=== PATIENT | male | born 1950 | race Caucasian/White ===

== ENCOUNTER 2024-01-06 15:50 | Inpatient (IN) ==
--- NOTE | 2024-01-06 16:14 | Emergency Department Note ---
History of Present Illness General Chief complaint: Illness Stated complaint: SOB, CONFUSION, SLURRED SPEECH, HEADACHE Time Seen by Provider: 01/06/24 15:59 Source: patient, family ( and daughter who are at the bedside), RN notes reviewed and old records reviewed (I have reviewed a medication fill list from the outside pharmacy) Mode of arrival: ambulatory Limitations: no limitations History of Present Illness This patient is a 73-year-old male who comes in after having a decline over the last month and a half. He is here with his family. They said that he started waking up at night short of breath and seeing things and hallucinating. He has been seen by his doctor who is in [place] and they have change his medications including put him on Cymbalta and change his blood pressure medication they so far feel that it is related to anxiety although he has had no other testing. He gets very confused when he wakes up in the morning at times his color looks off at times. His speech seems off at times. His bright breathing seems erratic at times is mostly dyspnea on exertion the reason that brought him in today is because he seems a lot more dyspneic on exertion he walks about 20 feet or ties his shoes and he feels short winded. He feels fine sitting in the bed at rest. No lower extremity edema or swelling no fall or trauma no chest pain he has occasional cough with phlegm. No abdominal pain no nausea vomiting is chronic diarrhea off-and-on no blood in his stool his stools black at times but he is on iron. No urinary symptoms. No acute change in vision although says his vision has been off for the last couple weeks or so. He recently got new glasses. No numbness or weakness in arms or legs. He has a headache that is been mild off and on. He takes baby aspirin 3 times a week but no other blood thinners. Home Medications Medication Instructions Recorded Confirmed Type aspirin 81 mg tablet,delayed 81 mg PO [id number] 01/06/24 01/06/24 History release duloxetine 30 mg capsule,delayed 30 mg PO HS 01/06/24 01/06/24 History release ferrous sulfate 325 mg (65 mg 325 mg PO HS 01/06/24 01/06/24 History iron) tablet lorazepam 1 mg tablet See Rx Instructions .Route .COMPLEX 01/06/24 01/06/24 History meloxicam 15 mg tablet 15 mg PO QAM 01/06/24 01/06/24 History metoprolol succinate [address] [facility] 01/06/24 01/06/24 History tablet,extended release 24 hr omeprazole 40 mg capsule,delayed 40 mg PO 01/06/24 01/06/24 History release pioglitazone 15 mg tablet (Actos) 15 mg PO DAILY 01/06/24 01/06/24 History pramipexole 0.5 mg tablet 0.5 mg PO HS 01/06/24 01/06/24 History prazosin 5 mg capsule 5 mg PO 01/06/24 01/06/24 History Allergies Allergy/AdvReac Type Severity Reaction Status Date / Time aspirin Allergy Unknown Unknown - Unverified 01/06/24 18:45 On File w/ [facility] Penicillins Allergy Unknown Unknown - Unverified 01/06/24 18:45 On File w/ [facility] Past Med/Surg History Problem List (Updated 01/07/24 @ 00:10 by James Aguilar MD) CHF (congestive heart failure) (Acute) Hypertension Hypertensive urgency Atrial fibrillation (Acute) Anemia Hallucinations, visual Thrombocytopenia Acute encephalopathy Anxiety (Acute) Diabetes Hallucinations (Acute) OSORIO (dyspnea on exertion) (Acute) Medical History (Updated 01/07/24 @ 00:10 by James Aguilar MD) History of GI bleed Emphysema lung Social History Smoking Status: Former smoker Preferred Language: Thai Communication Ability: Effective It Assistant Required: No Beliefs That Will Affect Care: None Current Living Situation: Spouse Feels Safe at Home: Yes Safety Concerns: Feels Safe At This Time Immunizations: Past medical historyhypertension, diabetes-has been well-controlled, hypercholesteremia, COPD he is on no medications for COPD. Allergiesno known drug allergy Social history he does have a smoking history but quit many years ago. He drinks about 3 times a week but does not have any trouble with withdrawal if he does not drink Review of Systems A total of 10 systems reviewed and were otherwise negative Physical Exam Vital Signs Vital Signs - 24 hr 01/06/24 15:53 01/06/24 17:52 01/06/24 17:54 Pulse Rate 59 L 59 L Pulse Rate from SpO2 Sensor 62 Pulse Rhythm Regular Respiratory Rate 21 21 Blood Pressure 163/104 H Blood Pressure Mean 123 Pulse Oximetry 94 94 Oxygen Delivery Method Room Air Sepsis New/Unexplained Change in Mental Status Yes Sepsis Action Taken by Nursing No Action Required 01/06/24 18:31 01/06/24 19:02 Pulse Rate 56 L 52 L Pulse Rate from SpO2 Sensor 55 L Pulse Rhythm Respiratory Rate 25 H 25 H Blood Pressure 192/83 H 190/100 H Blood Pressure Mean 119 130 Pulse Oximetry 94 Oxygen Delivery Method Sepsis New/Unexplained Change in Mental Status Sepsis Action Taken by Nursing General: Well developed well nourished [id number] older male who appears in no acute distress, breathing comfortably on room air. Normal speech HEENT: Normal cephalic atraumatic. Pupils are equal round and reactive to light. Extraocular movements are intact. Oropharynx is pink with moist mucous membranes. No swelling of the mouth lips or tongue. Neck: Supple with a midline trachea. No meningeal signs or stiffness, no JVD or bruits. No Stridor. Chest: Clear to auscultation bilaterally. No wheezes or rhonchi. No increased work of breathing. Heart: Regular rate and rhythm without murmurs or gallops. Abdomen: Soft nontender, nondistended without rebound guarding or rigidity. Extremities: No cyanosis clubbing or edema. No calf tenderness or assymetry Spine/Back. Non tender to palpation. No CVA tenderness Skin: Good turgor without rashes. Neurologic exam: Cranial nerves two through 12 are intact. Motor and sensation are intact and symmetrical throughout. Finger-nose intact. Normal gait with exception of limp due to chronic left knee issues he tells me. Does not appear to be ataxic Course Administered Medications Duloxetine HCl (Duloxetine Hcl 30 Mg Cap) 30 mg PO HS GALI Stop: 02/05/24 21:59 Last Admin: 01/06/24 23:12 Dose: 30 mg Documented By: MONIKA Ferrous Sulfate (Ferrous Sulfate 325 Mg Tab) 325 mg PO HS GALI Stop: 02/05/24 21:59 Last Admin: 01/06/24 23:12 Dose: 325 mg Documented By: MONIKA Insulin Aspart (Insulin Aspart Per Unit Charge) 0 units SC ACHS GALI Stop: 02/05/24 21:52 Last Admin: 01/06/24 23:07 Dose: Not Given Documented By: MONIKA Co-signed By: MENG Pantoprazole Sodium (Pantoprazole 40 Mg Tab) 40 mg PO HS GALI Stop: 02/05/24 21:59 Last Admin: 01/06/24 23:12 Dose: 40 mg Documented By: MONIKA Pramipexole Dihydrochloride (Pramipexole Dihydrochlo 0.5 Mg Tab) 0.5 mg PO HS GALI Stop: 02/05/24 21:59 Last Admin: 01/06/24 23:12 Dose: 0.5 mg Documented By: MONIKA Prazosin HCl (Prazosin Hcl 1 Mg Cap) 5 mg PO HS GALI Stop: 02/05/24 21:59 Last Admin: 01/06/24 23:12 Dose: 5 mg Documented By: MONIKA Discontinued Medications Lorazepam 1 mg/ Syringe 1 mls @ 2 mls/min IV ONE PRN PRN Reason: 30 mins prior to MRI Last Admin: 01/06/24 20:22 Dose: 2 mls/min Documented By: MONIKA Ioversol (Optiray 320 125ml) 117 ml IV ONCE ONE Stop: 01/06/24 20:20 Last Admin: 01/06/24 20:20 Dose: 117 ml Documented By: TAVARES Medical Decision Making Differential Diagnosis Intracranial process, CHF, COPD, acute coronary syndrome, arrhythmia, anemia, infection, trauma, electrolyte or metabolic abnormality, toxicologic Medical Records Attestation: I reviewed the patient's medical records. Home Medications Current Medication List: was personally reviewed by me Laboratory Data Attestation: I reviewed the patient's lab results. 01/06/24 16:45 01/06/24 16:45 Lab Results 01/06/24 01/06/24 Range/Units 16:45 17:50 WBC 4.29 L (4.8-10.8) K/ul RBC 3.63 L (4.70-6.10) M/uL Hgb 10.8 L (14.0-18.0) g/dl Hct 33.1 L (42.0-52.0) % MCV 91.2 (80.0-100.0) fL MCH 29.8 (25.0-34.0) pg MCHC 32.6 (32.0-36.0) g/dL RDW Std Deviation 49.8 H (36.4-46.3) fL RDW Coeff of Erick 15.3 H (11.5-14.5) % Plt Count 101 L (130-400) K/uL MPV 9.6 (9.4-12.4) fL Immature Gran % (Auto) 0.5 % Neut % (Auto) 73.2 % Lymph % (Auto) 17.0 % [place] % (Auto) 5.6 % Eos % (Auto) 3.5 % Baso % (Auto) 0.2 % Neut # (Auto) 3.14 (1.40-6.50) K/uL Lymph # (Auto) 0.73 L (1.20-3.40) K/uL [place] # (Auto) 0.24 (0.11-0.59) K/uL Eos # (Auto) 0.15 (0.00-0.50) K/uL Baso # (Auto) 0.01 (0.00-0.20) K/uL Immature Gran # (Auto) 0.02 (0.01-0.20) K/uL PT 11.5 (9.0-12.0) Seconds INR 1.1 (0.9-1.1) APTT 23 (21-31) Seconds PTT Ratio 0.9 D-Dimer 870 H* (0-500) ug/L FEU VBG pH 7.37 (7.36-7.41) VBG pCO2 49 (38-50) mmHg VBG pO2 33 mmHg VBG HCO3 28 mmol/L VBG O2 Saturation 60.5 % VBG Base Excess 2.2 mEq/L Sodium 142 (136-145) mmol/L Potassium 4.3 (3.5-5.1) mmol/L Chloride 109 H (98-107) mmol/L Carbon Dioxide 28 (21-32) mmol/L Anion Gap 5 (3-11) BUN 21 (6-23) mg/dl Creatinine 1.25 (0.6-1.4) mg/dl Est Cr Clr Drug Dosing Not Reportable Est GFR ( Amer) 64.9 ml/min Est GFR (Non-Af Amer) 56.0 ml/min BUN/Creatinine Ratio 16.8 (10-20) Glucose 118 H (70-99(Fasting)) mg/dl Calcium 8.9 (8.6-10.3) mg/dl Magnesium 2.0 (1.7-2.4) mg/dl Total Bilirubin 1.0 (0.2-1.0) mg/dl AST 12 L (13-39) U/L ALT 10 (7-52) U/L Alkaline Phosphatase 83 (34-104) U/L Troponin I High Sens 9.2 (0-20) pg/ml C-Reactive Protein < 0.50 (0-0.5) mg/dl B-Natriuretic Peptide 390 H (0-100) pg/ml Total Protein 6.7 (6.0-8.3) gm/dl Albumin 4.1 (3.4-5.0) gm/dl Globulin 2.6 (2.5-4.0) gm/dl Albumin/Globulin Ratio 1.6 (0.9-2) Procalcitonin < 0.02 (0-0.5) ng/ml TSH 4.435 (0.300-4.500) uIu/ml Adenovirus (PCR) Not Detected (NotDetected) B. pertussis DNA (PCR) Not Detected (NotDetected) B.parapertussis DNA PCR Not Detected (NotDetected) C. pneumoniae DNA (PCR) Not Detected (NotDetected) Coronavirus OC43 (PCR) Not Detected (NotDetected) Coronavirus HKU1 (PCR) Not Detected (NotDetected) Coronavirus 229E (PCR) Not Detected (NotDetected) SARS-CoV-2 (PCR) Not Detected (NotDetected) Coronavirus NL63 (PCR) Not Detected (NotDetected) Human Metapneumovir PCR Not Detected (NotDetected) Influenza Type A (PCR) Not Detected (NotDetected) Influenza Type B (PCR) Not Detected (NotDetected) M. pneumoniae (PCR) Not Detected (NotDetected) Parainfluenza 1 (PCR) Not Detected (NotDetected) Parainfluenza 2 (PCR) Not Detected (NotDetected) Parainfluenza 3 (PCR) Not Detected (NotDetected) Parainfluenza 4 (PCR) Not Detected (NotDetected) RSV (PCR) Not Detected (NotDetected) Entero/Rhino (PCR) Not Detected (NotDetected) Imaging Data Attestation: I personally reviewed and interpreted this imaging study as follows: My Impression: Head CTno hemorrhage or mass effect seen Chest x-raycardiomegaly with a small to moderate pleural effusion on the left Radiologist's Impression: Chest X-Ray 01/06/24 16:11 XR chest 1V portable HISTORY: weakness COMPARISON: None. FINDINGS: No pneumothorax. The heart is mildly enlarged. The right lung is clear. Small to moderate left pleural effusion with left basilar densities. No acute fractures. No evidence for pulmonary edema. IMPRESSION: 1. Small to moderate left pleural effusion with left basilar densities. 2. Mild cardiomegaly. ACT 112: Negative or not required by law. Electronically signed by: John Eubanks M.D. 01/06/2024 4:[address] 01/06/24 16:11 CT head/brain wo con CLINICAL HISTORY: 73 years-old Male with wekness, headache. Acute headache TECHNIQUE: Multiple axial CT images of the head were obtained without contrast. A dose lowering technique was utilized adhering to the principles of ALARA. CT DOSE: 625.8 mGy.cm COMPARISON: None. FINDINGS: No acute intracranial hemorrhage, midline shift, intracranial mass, hydrocephalus, territorial ischemia or abnormal extra-axial collection. Involutional changes chronic with microvascular ischemic disease. The calvarium is intact. The paranasal sinuses, mastoid air cells, and middle ear cavities are clear. IMPRESSION: No acute intracranial abnormality. ACT 112: Negative or not required by law. The above report was generated using voice recognition software. It may contain grammatical, syntax or spelling errors. Electronically signed by: González Patel M.D. 01/06/2024 5:08 PM ECG Data Attestation: I personally reviewed and interpreted this ECG as follows: Indication: + weakness Rate (beats per minute): 59 Rhythm: + atrial fibrillation and + other (Poor baseline) ECG Intervals/blocks: + Normal QRS and + Normal QT ECG [place]: + Normal ECG ST segments: + Normal ST segments ECG Findings: no PACs or no PVCs Comparison ECG Date: no prior available MDM Narrative This patient comes in as described above. He looks well on my exam but the family says he had a decline over the last month and a half where he has been getting significantly dyspneic on exertion. he also seems to be confused in the morning. He has no acute focal neurologic deficits on exam. He has normal speech. I did a full workup on him which included: multiple blood testing, EKG,chest x-ray, head CT and urinalysis. He was reassessed frequently. He is placed on a media monitor in room B9. At present , he seems to have normal mentation and does not appear to be hallucinating. I did discuss the case with Luly, our ED pharmacist, and she was able to get the outside medication for list from his home medications. Chest x-ray shows cardiomegaly with pleural effusion on the left. BNP is also elevated. I do think there is likely a CHF component. Was also found to be in A-fib. He said he had this many years ago and was on anticoagulation but due to GI bleed issues they stopped his anticoagulation. Is unclear whether his A-fib is chronic. CAT scan of his head is unremarkable. He has no significant electrolyte or metabolic abnormalities. I do think he needs to be admitted/observed for further cardiac/neurologic workup workup. I have consulted Dr. Adarsh Shetty to see the patient ER for these measures Continuous cardiac monitoring call orders placed in the EMR for continuous media monitor upon my evaluation patient noted to be in atrial fibrillation with a rate of 70 Impression & Plan OSORIO (dyspnea on exertion), Hallucinations, Atrial fibrillation, Anxiety, CHF (congestive heart failure) Discharge Plan Visit Data Chief Complaint: Illness Stated Complaint: SOB, CONFUSION, SLURRED SPEECH, HEADACHE ED Provider: James Aguilar Discharge Problem: OSORIO (dyspnea on exertion), Hallucinations, Atrial fibrillation, Anxiety, CHF (congestive heart failure) Patient Disposition: Admitted As Inpatient Discharge Instructions Interventions: ED Discharge Assessment Last Done: 01/06/24 21:53 Discharge Problem: Atrial fibrillation Qualifiers: Atrial fibrillation type: unspecified Qualified Code(s): I48.91 - Unspecified atrial fibrillation CHF (congestive heart failure) Qualifiers: Heart failure type: unspecified Heart failure chronicity: unspecified Qualified Code(s): I50.9 - Heart failure, unspecified
--- NOTE | 2024-01-06 16:38 | XRay Report ---
XR chest 1V portable HISTORY: weakness COMPARISON: None. FINDINGS: No pneumothorax. The heart is mildly enlarged. The right lung is clear. Small to moderate l eft pleural effusion with left basilar densities. No acute fractures. No evidence for pulmonary edema . IMPRESSION: 1. Small to moderate left pleural effusion with left basilar densities. 2. Mild cardiomegaly. ACT 112: Negative or not required by law. Electronically signed by: John Eubanks M.D. 01/06/2024 4:36 PM
[2024-01-06 17:02] LABS: Base Excess VBG 2.2 mEq/L; HCO3 VBG 28 mmol/L; Oxygen Saturation VBG 60.5 %; PCO2 VBG 49 mmHg (38-50); PO2 VBG 33 mmHg; pH VBG 7.37 (7.36-7.41)
--- NOTE | 2024-01-06 17:11 | CT Scan Report ---
CT head/brain wo con CLINICAL HISTORY: 73 years-old Male with wekness, headache. Acute headache TECHNIQUE: Multiple axial CT images of the head were obtained without contrast. A dose lowering tech nique was utilized adhering to the principles of ALARA. CT DOSE: 625.8 mGy.cm COMPARISON: None. FINDINGS: No acute intracranial hemorrhage, midline shift, intracranial mass, hydrocephalus, territorial ischem ia or abnormal extra-axial collection. Involutional changes chronic with microvascular ischemic disea se. The calvarium is intact. The paranasal sinuses, mastoid air cells, and middle ear cavities are clear . IMPRESSION: No acute intracranial abnormality. ACT 112: Negative or not required by law. The above report was generated using voice recognition software. It may contain grammatical, syntax o r spelling errors. Electronically signed by: González Patel M.D. 01/06/2024 5:08 PM
[2024-01-06 17:12] LABS: Basophils # (auto) 0.01 K/uL (0.00-0.20); Basophils % (auto) 0.2 %; Eosinophils # (auto) 0.15 K/uL (0.00-0.50); Eosinophils % (auto) 3.5 %; Hematocrit (blood only) 33.1 % (42.0-52.0); Hemoglobin 10.8 g/dl (14.0-18.0); Immature Granulocytes # (auto) 0.02 K/uL (0.01-0.20); Immature Granulocytes % (auto) 0.5 %; Lymphocytes # (auto) 0.73 K/uL (1.20-3.40); Mean Corpuscular Hemoglobin 29.8 pg (25.0-34.0); Mean Corpuscular Hgb Conc 32.6 g/dL (32.0-36.0); Mean Corpuscular Volume 91.2 fL (80.0-100.0); Mean Platelet Volume 9.6 fL (9.4-12.4); Monocytes # (auto) 0.24 K/uL (0.11-0.59); Monocytes % (auto) 5.6 %; Neutrophils # (auto) 3.14 K/uL (1.40-6.50); Neutrophils % (auto) 73.2 %; Platelet Count 101 K/uL (130-400); RDW Coefficient of Variation 15.3 % (11.5-14.5); RDW Standard Deviation 49.8 fL (36.4-46.3); Red Blood Count 3.63 M/uL (4.70-6.10); White Blood Count 4.29 K/ul (4.8-10.8)
[2024-01-06 17:32] LABS: Alanine Aminotransferase 10 U/L (7-52); Albumin Globulin Ratio 1.6 (0.9-2); Albumin Level 4.1 gm/dl (3.4-5.0); Alkaline Phosphatase 83 U/L (34-104); Anion Gap 5 (3-11); Aspartate Aminotransferase 12 U/L (13-39); BUN Creatinine Ratio 16.8 (10-20); Blood Urea Nitrogen 21 mg/dl (6-23); Calcium 8.9 mg/dl (8.6-10.3); Carbon Dioxide 28 mmol/L (21-32); Chloride 109 mmol/L (98-107); Est GFR (African American) 64.9 ml/min; Globulin 2.6 gm/dl (2.5-4.0); Glucose 118 mg/dl (70-99(Fasting)); Potassium 4.3 mmol/L (3.5-5.1); Sodium 142 mmol/L (136-145); Total Protein 6.7 gm/dl (6.0-8.3)
[2024-01-06 17:39] LABS: Troponin I High Sensitivity 9.2 pg/ml (0-20)
[2024-01-06 17:40] LABS: INR 1.1 (0.9-1.1); Partial Thromboplastin Ratio 0.9; Partial Thromboplastin Time 23 Seconds (21-31); Prothrombin Time 11.5 Seconds (9.0-12.0)
[2024-01-06 17:48] LABS: Thyroid Stimulating Hormone 4.435 uIu/ml (0.300-4.500)
--- NOTE | 2024-01-06 18:10 | History & Physical Report ---
Date of Service January 06, 2024 Assessment & Plan (1) Acute encephalopathy: Plan: Suspect multifactorial CT head with no acute pathology Ammonia level added UA pending Brain MRI to assess for CVA given expressive dysphasia noted by family Mainly overnight therefore will get overnight pulse oximetry and morning ABG to assess for hypoxia/hypercapnia Iatrogenic - multiple recent medication changes but most notably started on lorazepam which we will utilize for the brain MRI then discontinue (2) OSORIO (dyspnea on exertion): Plan: Low suspicion a. fib related but possible led to some heart failure (pleural effusion) contributing Suspect somewhat anxiety component as historically this has been the case (previously resolved with Eliquis No WBC or fever to suggest consolidation in left lower lobe infectious and biofire negative, will add procalcitonin to rule out need for antibiotics D-dimer added, if positive will get CT for PE Consult pulmonology regarding left pleural effusion to consider thoracentesis for diagnostic and therapeutic purposes (3) Atrial fibrillation: Plan: Possibly previously diagnosed with episode of GI bleed in 2018 Hold off anticoagulation pending brain MRI to ensure no large acute CVA - will start IV heparin depending on result of this Rate controlled on metoprolol - in fact appears to be somewhat bradycardic therefore will reduce from 100mg to 50mg PO daily TSH WNL TTE ordered (4) Hypertensive urgency: Plan: Deferred acutely treating pending MRI brain to ensure no acute CVA No end organ damage to suggest hypertensive emergency (5) Emphysema lung: Plan: On no inhalers for this. No wheezing on exam to suggest exacerbation. Recommend PFTs as outpatient if not recently performed. (6) Diabetes: Plan: HbA1C with AM labs Stop pioglitazone, consider discontinuation if heart failure suspected to be cause of pleural effusion Novolog for correction factor only (7) Anxiety: Plan: Continue Cymbalta Stop Lorazepam (except for MRI) (8) Thrombocytopenia: Plan: Mild, unclear baseline, LFTs and INR unremarkable, repeat with AM labs Hold aspirin - no clear indication for this from history given by patient and family (9) Hallucinations, visual: Plan: Previously appears to be related to Paxil, currently most likely culprit is lorazepam Prazosin also a possibility of contributing towards this (10) Anemia: Plan: Recently gave blood, to prior Hgb levels to compare Ferritin, iron levels, B12, folate, retic, LDH with Am labs (11) History of GI bleed: Plan: 2018 Switch omeprazole to pantoprazole per hospital formulary (12) Hypertension: (13) Pleural effusion, left: Plan VTE Prophylaxis - IV heparin Diet - T2DM, Low Na Disposition - admit to med/tele Admission and Anticipated Discharge Date Admission Date: January 06, 2024 History of Present Illness Chief Complaint: Shortness of breath Hypnopompic hallucinations Expressive dysphasia Primary Care Provider: Sky Pantoja MD Mario Simon is a 73 year old male who presents to the ER with shortness of breath, hypnopompic hallucinations and expressive dysphasia. Here with his and daughter who provide most of the history. In general he does not like getting investigations and therefore despite most of his symptoms ongoing for last 6 weeks and seeing his PCP he has not had any labs or imaging. The shortne ss of breath has been getting progressively worse over the last 6 weeks but especially worse over the last few days and is their main concern prompting this visit to the ER. It is mainly on exertion and lying flat but now also occurring at rest. He denies any chest pain, palpitations, paroxysmal nocturnal dyspnea, leg swelling, claudication, presyncope or syncope. He took an old albuterol inhaler yesterday for his shortness of breath with limited effect. Expressive dysphasia - daughter notes episode of this last Wednesday with difficulty getting the right words out and has reoccurred today. Atrial fibrillation - noted on monitor and EKG today. They report possibly being told he had this during a GI bleed a few years ago in [place] but it was not treated and they haven't had any information regarding this since. He is not on anticoagulation Visual hallucinations - previously these were during the day time but suspected to be due to Paxil therefore switched to Cymbalta and he no longer has this during the day time. Currently hallucinations occur just while waking up in the middle of the night he feels he is hanging from the ceiling in the corridor and is going to fall. Confusion - mainly first this in the morning. Much more asleep during the day time. He has had multiple recent medication changes with Paxil -> Cymbalta in November due to daytime visual hallucinations which have improved on the Cymbalta. He was also started on prazosin for night terrors and therefore discontinued amlodipine due to concerns it would reduce his blood pressure. Lorazepam started PRN in October which he reports taking relatively frequently at a half dose for the last week. He has not been on HCTZ for the last year despite continuing to pick this up from the pharmacy they maintain he is not on this or the amlodipine. Pioglitazone started in June for his diabetes. Of note he also recently gave blood 2 weeks ago despite his ongoing shortness of breath. Allergies Allergy/AdvReac Type Severity Reaction Status Date / Time aspirin Allergy Unknown Unknown - Unverified 01/06/24 18:45 On File w/ [facility] Penicillins Allergy Unknown Unknown - Unverified 01/06/24 18:45 On File w/ [facility] Home Medications Medication Instructions Recorded Confirmed Type aspirin 81 mg tablet,delayed 81 mg PO 3XWK 01/06/24 01/06/24 History release duloxetine 30 mg capsule,delayed 30 mg PO HS 01/06/24 01/06/24 History release ferrous sulfate 325 mg (65 mg 325 mg PO HS 01/06/24 01/06/24 History iron) tablet lorazepam 1 mg tablet See Rx Instructions .Route .COMPLEX 01/06/24 01/06/24 History meloxicam 15 mg tablet 15 mg PO QAM 01/06/24 01/06/24 History metoprolol succinate 100 mg 100 mg PO QAM 01/06/24 01/06/24 History tablet,extended release 24 hr omeprazole 40 mg capsule,delayed 40 mg PO HS 01/06/24 01/06/24 History release pioglitazone 15 mg tablet (Actos) 15 mg PO DAILY 01/06/24 01/06/24 History pramipexole 0.5 mg tablet 0.5 mg PO HS 01/06/24 01/06/24 History prazosin 5 mg capsule 5 mg PO HS 01/06/24 01/06/24 History Past Med/Surg History Problem List (Updated 01/07/24 @ 07:13 by Adarsh Shetty MD) Pleural effusion, left CHF (congestive heart failure) (Acute) Hypertension Hypertensive urgency Atrial fibrillation (Acute) Anemia Hallucinations, visual Thrombocytopenia Acute encephalopathy Anxiety (Acute) Diabetes Hallucinations (Acute) OSORIO (dyspnea on exertion) (Acute) Medical History (Updated 01/07/24 @ 07:13 by Adarsh Shetty MD) History of GI bleed Emphysema lung Social History Smoking Status: Former smoker Preferred Language: Vietnamese Communication Ability: Effective Ad Trafficker Required: No Beliefs That Will Affect Care: None Current Living Situation: Spouse Feels Safe at Home: Yes Safety Concerns: Feels Safe At This Time Review of Systems Review of Systems: All systems reviewed & are unremarkable except as noted in HPI & below Episodes of urgent diarrhea - several months, last colonoscopy in 2018. EGD showed bleeding, blood transfusion at [place]. Phlegm in throat - 1-2 years but worse over last month, coughing up saenz colored, cough mostly in morning when gets up after coffee Physical Exam Constitutional: WD/WN, vitals as above Eyes: PERRL, conjunctivae normal, anicteric sclerae Respiratory: normal respiratory effort, lungs clear to auscultation Cardiovascular: Rate/Rhythm: regular rate and + irregularly irregular Heart Sounds: no murmur Extremities: normal capillary refill and + pedal edema; no calf tenderness Gastrointestinal (Abdomen): normal bowel sounds, soft, nontender, no hepatosplenomegaly Musculoskeletal: no cyanosis or clubbing, extremities motor strength 5/5 Skin: no rashes, warm and dry Neurologic: moves all extremities and awake; not confused Speech / Cognition: normal speech Motor/Sensory: no tremor and no pronator drift Cranial Nerves: PERRL, normal accommodation, EOM intact bilaterally, normal facial strength, tongue midline, able to rotate head bilaterally, able to elevate shoulders bilaterally, no nystagmus and symmetric palate elevation Coordination: normal [id number] test Psychiatric: A+Ox3, euthymic affect Results & Data Results & Data Vital Signs (Past 12 Hours) Vital Signs Pulse Resp BP Pulse Ox O2 Del Method 01/06/24 17:54 59 L 21 94 Room Air 01/06/24 17:52 59 L 21 163/104 H 94 Laboratory Results Abnormal lab results 01/06/24 Range/Units 16:45 WBC 4.29 L (4.8-10.8) K/ul RBC 3.63 L (4.70-6.10) M/uL Hgb 10.8 L (14.0-18.0) g/dl Hct 33.1 L (42.0-52.0) % RDW Std Deviation 49.8 H (36.4-46.3) fL RDW Coeff of Erick 15.3 H (11.5-14.5) % Plt Count 101 L (130-400) K/uL Lymph # (Auto) 0.73 L (1.20-3.40) K/uL Chloride 109 H (98-107) mmol/L Glucose 118 H (70-99(Fasting)) mg/dl AST 12 L (13-39) U/L B-Natriuretic Peptide 390 H (0-100) pg/ml Diagnostic Findings CT head/brain wo con CLINICAL HISTORY: 73 years-old Male with wekness, headache. Acute headache TECHNIQUE: Multiple axial CT images of the head were obtained without contrast. A dose lowering technique was utilized adhering to the principles of ALARA. CT DOSE: 625.8 mGy.cm COMPARISON: None. FINDINGS: No acute intracranial hemorrhage, midline shift, intracranial mass, hydrocephalus, territorial ischemia or abnormal extra-axial collection. Involutional changes chronic with microvascular ischemic disease. The calvarium is intact. The paranasal sinuses, mastoid air cells, and middle ear cavities are clear. IMPRESSION: No acute intracranial abnormality. XR chest 1V portable HISTORY: weakness COMPARISON: None. FINDINGS: No pneumothorax. The heart is mildly enlarged. The right lung is clear. Small to moderate left pleural effusion with left basilar densities. No acute fractures. No evidence for pulmonary edema. IMPRESSION: 1. Small to moderate left pleural effusion with left basilar densities. 2. Mild cardiomegaly. Medications Administered ER Medications Give: None ECG Rate (beats per minute): 59 Rhythm: atrial fibrillation Findings: no acute ischemic change Comparison ECG Date: no prior available Code Status & VTE Plan Code Status Full PG Care Time/CCT Total # of Minutes Spent Total Time Spent with Patient: Total time spent is greater than 50% in coordination of care (as documented) at patient's floor/unit and/or counseling patient: Coding Level of Care Code 25958 INT INP/OBS CARE 3/75MIN Diagnoses Acute encephalopathy G93.40 OSORIO (dyspnea on exertion) R06.09 Atrial fibrillation I48.91 Hypertensive urgency I16.0 Emphysema lung J43.9 Diabetes E11.9 Anxiety F41.9 Thrombocytopenia D69.6 Hallucinations, visual R44.1 Anemia D64.9 History of GI bleed Z87.19 Hypertension I10 Pleural effusion, left J90
[2024-01-06 18:51] LABS: Adenovirus PCR Not Detected (NotDetected); Bordetella parapertussis PCR Not Detected (NotDetected); Bordetella pertussis PCR Not Detected (NotDetected); Chlamydia pneumoniae PCR Not Detected (NotDetected); Coronavirus 229E PCR Not Detected (NotDetected); Coronavirus CoV-2 (COVID19)PCR Not Detected (NotDetected); Coronavirus HKU1 PCR Not Detected (NotDetected); Coronavirus NL63 PCR Not Detected (NotDetected); Coronavirus OC43PCR Not Detected (NotDetected); Human Metapneumovirus PCR Not Detected (NotDetected); Influenza A PCR Not Detected (NotDetected); Influenza B PCR Not Detected (NotDetected); Mycoplasma pneumoniae PCR Not Detected (NotDetected); Parainfluenza Virus 1 PCR Not Detected (NotDetected); Parainfluenza Virus 2 PCR Not Detected (NotDetected); Parainfluenza Virus 3 PCR Not Detected (NotDetected); Parainfluenza Virus 4 PCR Not Detected (NotDetected); Respiratory Syncytial VirusPCR Not Detected (NotDetected); Rhinovirus/Enterovirus PCR Not Detected (NotDetected)
[2024-01-06 19:33] LABS: D Dimer 870 ug/L FEU (0-500)
[2024-01-06 19:59] LABS: Appearance Urine Clear (Clear); Bacteria Urine Automated None Seen (None Seen); Bilirubin Urine Negative (Negative); Blood Urine Negative (Negative); Cast Urine Automated 0-2 /lpf (0-2); Color Urine Yellow; Epithelial Cell Urine Auto 0-2 /hpf (0-2); Glucose Urine UA Negative (Negative); Ketones Urine Negative (Negative); Leukocyte Esterase Urine 1+ (Negative); Nitrite Urine Negative (Negative); Protein Urine Trace (Negative); RBC Urine Automated 0-2 /hpf (0-2); Specific Gravity Urine 1.022 (1.000-1.030); Urobilinogen Urine Negative (Negative); pH Urine 5.5 (4.5-7.5)
[2024-01-06] MEDS: OPTIRAY 320 125ml IV ONE (20:20)
[2024-01-06] MEDS: LORazepam 1 MG in SYRINGE 0.5 ML IV PRN (20:22)
[2024-01-06] MEDS ORDERED: GLUCOSE 40% GEL 15 GM TUBE PO PRN (21:53)
[2024-01-06] MEDS ORDERED: GLUCOSE 10 TAB/TUBE PO PRN (21:53)
[2024-01-06] MEDS ORDERED: ACETAMINOPHEN 325 MG TAB PO PRN (21:53)
[2024-01-06] MEDS ORDERED: DEXTROSE 50% 50 ML SYRINGE IV PRN (21:53)
[2024-01-06] MEDS ORDERED: GLUCAGON FOR INJ 1 MG VIAL SQ PRN (21:53)
[2024-01-06] MEDS ORDERED: CARBOHYDRATES FOR HYPOGLYCEMIA PO PRN (21:53)
--- NOTE | 2024-01-06 22:06 | CT Scan Report ---
Exam(s): CTA CHEST IV Amt: 117 ML OPTIRAY 320 EXAM: CT Angiography Chest With Intravenous Contrast CLINICAL HISTORY: Reason for exam: PE. TECHNIQUE: Axial computed tomographic angiography images of the chest with intravenous contrast. CTDI is 40 mGy and DLP is 980.84 mGy-cm. Automated exposure control was utilized for the study. A dose lowering technique was utilized adhering to the principles of ALARA. MIP reconstructed images were created and reviewed. COMPARISON: No relevant prior studies available. FINDINGS: Pulmonary arteries: Unremarkable. No acute pulmonary embolism. Aorta: No acute findings. No thoracic aortic aneurysm. Lungs: See below. Pleural space: Small bilateral pleural effusions, LEFT great than RIGHT. Airspace consolidation at the LEFT lung base, concerning for aspiration pneumonia. Heart: Unremarkable. No cardiomegaly. No significant pericardial effusion. No evidence of RV dysfunction. Bones/joints: No acute fracture. No dislocation. Soft tissues: Unremarkable. Lymph nodes: Unremarkable. No enlarged lymph nodes. Liver: Hepatic steatosis. IMPRESSION: Small bilateral pleural effusions, LEFT great than RIGHT. Airspace consolidation at the LEFT lung base, concerning for aspiration pneumonia. Electronically signed by: Burak Humphries MD 01/06/24 22:05 PM
[2024-01-06 22:49] LABS: C Reactive Protein < 0.50 mg/dl (0-0.5)
[2024-01-06] MEDS: INSULIN ASPART PER UNIT CHARGE SC SCH (23:07)
[2024-01-06] MEDS: DULoxetine HCL 30 MG CAP PO SCH (23:12)
[2024-01-06] MEDS: PRAMIPEXOLE DIHYDROCHLO 0.5 MG TAB PO SCH (23:12)
[2024-01-06] MEDS: PANTOprazole 40 MG TAB PO SCH (23:12)
[2024-01-06] MEDS: PRAZOSIN HCL 1 MG CAP PO SCH (23:12)
[2024-01-06] MEDS: FERROUS SULFATE 325 MG TAB PO SCH (23:12)
[2024-01-07] MEDS ORDERED: Heparin IV Adult Wt-Based Standard *NO* INITIAL Bolus Protocol IV STA (00:55)
--- NOTE | 2024-01-07 01:52 | Magnetic Resonance Report ---
Exam(s): MRI HEAD Without Contrast EXAM: MR Head Without Intravenous Contrast CLINICAL HISTORY: Reason for exam: expressive dysphasia ?CVA. TECHNIQUE: Magnetic resonance images of the head/brain without intravenous contrast in multiple planes. COMPARISON: No relevant prior studies available. FINDINGS: Brain: Unremarkable. No mass. No hemorrhage. No acute infarct. Ventricles: Unremarkable. No ventriculomegaly. Bones/joints: Unremarkable. No acute fracture. Sinuses: Unremarkable as visualized. No acute sinusitis. Mastoid air cells: Unremarkable as visualized. No mastoid effusion. Orbits: Unremarkable as visualized. IMPRESSION: Normal head/brain MRI. Electronically signed by: Jean Evans MD 01/07/24 01:51 AM
[2024-01-07] MEDS: HEPARIN SODIUM/DEXTROSE 25,000 UNITS/500 ML BAG IV SCH (02:20)
[2024-01-07 06:43] LABS: Base Excess ABG 0.8 mEq/L (-9-1.8); HCO3 ABG 27 mmol/L (19-24); Oxygen Saturation ABG 95.2 % (90-95); PCO2 ABG 46 mmHg (35-46); PO2 ABG 77 mmHg (80-95); pH ABG 7.37 (7.35-7.45)
[2024-01-07 06:45] LABS: Allen Test Pos (Pos)
[2024-01-07 07:10] LABS: Estimated Average Glucose 108 mg/dl; Hemoglobin A1C 5.4 % (4.5-5.6)
[2024-01-07 07:19] LABS: Albumin Globulin Ratio 1.5 (0.9-2); Albumin Level 3.8 gm/dl (3.4-5.0); BUN Creatinine Ratio 19.2 (10-20); Calcium 8.5 mg/dl (8.6-10.3); Creatinine Clr Calc Pharmacy 78.5 ml/min; Est GFR (Non-African American) 69.9 ml/min; Globulin 2.5 gm/dl (2.5-4.0); Phosphorus 4.5 mg/dl (2.5-4.9); Potassium 3.7 mmol/L (3.5-5.1); Total Protein 6.3 gm/dl (6.0-8.3)
[2024-01-07 07:25] LABS: Hematocrit (blood only) 31.1 % (42.0-52.0); Hemoglobin 10.2 g/dl (14.0-18.0); Mean Corpuscular Hgb Conc 32.8 g/dL (32.0-36.0); Mean Corpuscular Volume 91.5 fL (80.0-100.0); Mean Platelet Volume 9.6 fL (9.4-12.4); Platelet Count 93 K/uL (130-400); RDW Coefficient of Variation 15.6 % (11.5-14.5); RDW Standard Deviation 50.4 fL (36.4-46.3); White Blood Count 3.73 K/ul (4.8-10.8)
[2024-01-07 07:27] LABS: Basophils # (auto) 0.02 K/uL (0.00-0.20); Basophils % (auto) 0.5 %; Eosinophils # (auto) 0.11 K/uL (0.00-0.50); Eosinophils % (auto) 2.9 %; Immature Granulocytes # (auto) 0.02 K/uL (0.01-0.20); Immature Granulocytes % (auto) 0.5 %; Lymphocytes # (auto) 0.67 K/uL (1.20-3.40); Monocytes # (auto) 0.23 K/uL (0.11-0.59); Monocytes % (auto) 6.2 %; Neutrophils # (auto) 2.68 K/uL (1.40-6.50); Neutrophils % (auto) 71.9 %; Platelet Estimate Decreased (Normal); Reticulocyte % 4.57 % (0.50-2.00)
[2024-01-07 07:35] LABS: Folate (Folic Acid),Ser orPlas 9.61 ng/ml (>5.38)
[2024-01-07 07:38] LABS: Ferritin 52.4 ng/ml (8-388)
[2024-01-07] MEDS: METOPROLOL SUCC 50MG EXT REL TAB PO SCH (08:28)
[2024-01-07 08:48] LABS: ANTI-Xa, UFH(UnfractionatedHep 0.35 IU/ml (0.3-0.7)
--- NOTE | 2024-01-07 10:23 | Electrocardiogram Report ---
Test Reason : Blood Pressure : / mmHG Vent. Rate : 059 BPM Atrial Rate : 065 BPM P-R Int : 000 ms QRS Dur : 096 ms QT Int : 456 ms P-R-T Axes : 025 011 044 degrees QTc Int : 451 ms Atrial fibrillation No previous ECGs available Confirmed by Mario James ([id number]) on 01/07/2024 10:23:11 AM Referred By: REFERRED SELF Confirmed By:Hamlet James
--- NOTE | 2024-01-07 13:06 | Pulmonary Consultation ---
Date of Consultation January 07, 2024 Assessment & Plan (1) Pulmonary edema cardiac cause: He has mosaic attenuation in bilateral effusions consistent with acute diastolic CHF. Will give a one-time dose of 40 mg of IV Lasix and defer further diuresis to the primary team. (2) Bilateral pleural effusion: Left greater than right effusion. Left effusion is small and will unlikely change his outcome if thoracentesis were pursued. Recommend conservative strategy of diuresis for the time being. (3) Cardiac murmur: Patient with several valvular defects noted on echo with aortic stenosis, mitral calcifications and mitral regurgitation noted. (4) Diastolic CHF, acute on chronic: As above, patient clearly in acute on chronic diastolic CHF exacerbation due to poorly controlled blood pressure, poor diet and atrial fibrillation. (5) Hypertension: Suggest better control of BP with goal systolic under 130 and goal diastolic under 80 mm torrey. Hypertension type: unspecified Qualified Code(s): I10 - Essential (primary) hypertension (6) Poor diet: Discussed the low-salt diet with the patient and checking daily weights. (7) Secondary pulmonary arterial hypertension: Patient with elevated RVSP of greater than 60 mmHg likely secondary to acute diastolic CHF. Recommend repeating an echo in 2 to 3 months as an outpatient once he is euvolemic. Recommend outpatient polysomnography to evaluate for for obstructive sleep apnea as this could also lead to pulmonary hypertension. Chest CTA last night without evidence of pulmonary embolism. Plan Thank you for the consult. Please call questions. History of Present Illness Reason for Consultation: Pleural effusion Attending Physician: Mario Baum MD History of Present Illness 73-year-old male with a history of hypertension and diabetes mellitus type 2 who presented to the ER due to severe shortness of breath with exertion. Family is able to provide collateral history as the patient is hard of hearing and has some memory deficits. Apparently the patient has been short of breath for the past month and a half with some lower extremity edema. His diet habits are quite poor and he often eats chips and other salty foods. Family notes that his blood pressure medication was recently changed due to night terrors. He was taken off of Norvasc and placed on prazosin and subsequently has had increasing blood pressures. Apparently yesterday he was confused and MRI of the brain was ordered which was negative. BNP revealed an elevated value and echocardiogram was completed today which revealed diastolic dysfunction, mild valvular aortic stenosis, mild mitral annular calcification, mild mitral regurgitation and an RVSP greater than 60 mmHg. Patient denies any shortness of breath currently at rest. He is on 2 L of oxygen saturating 99%. He denies any chest pain. He does endorse a history of social smoking and quit about 30 years ago. He smoked perhaps half a pack a day for about 20 years. 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 He denies any prior history of cardiac stenting or pulmonary disease that he is aware of. Chest CTA completed in the ER last night revealed small bilateral effusions, left greater than right and diffuse mosaic attenuation consistent with pulmonary edema per my review. Radiology also noted findings concerning for possible aspiration pneumonia. Patient's procalcitonin was negative. He is afebrile. He is without leukocytosis Allergies Allergy/AdvReac Type Severity Reaction Status Date / Time aspirin Allergy Unknown Unknown - Unverified 01/06/24 18:45 On File w/ [facility] Penicillins Allergy Unknown Unknown - Unverified 01/06/24 18:45 On File w/ [facility] Home Medications Medication Instructions Recorded Confirmed Type aspirin 81 mg tablet,delayed 81 mg PO 3XWK 01/06/24 01/06/24 History release duloxetine 30 mg capsule,delayed 30 mg PO HS 01/06/24 01/06/24 History release ferrous sulfate 325 mg (65 mg 325 mg PO HS 01/06/24 01/06/24 History iron) tablet lorazepam 1 mg tablet See Rx Instructions .Route .COMPLEX 01/06/24 01/06/24 History meloxicam 15 mg tablet 15 mg PO QAM 01/06/24 01/06/24 History metoprolol succinate 100 mg 100 mg PO QAM 01/06/24 01/06/24 History tablet,extended release 24 hr omeprazole 40 mg capsule,delayed 40 mg PO HS 01/06/24 01/06/24 History release pioglitazone 15 mg tablet (Actos) 15 mg PO DAILY 01/06/24 01/06/24 History pramipexole 0.5 mg tablet 0.5 mg PO HS 01/06/24 01/06/24 History prazosin 5 mg capsule 5 mg PO HS 01/06/24 01/06/24 History Patient History Medical History (Updated 01/07/24 @ 13:04 by Cameron Grayson MD) History of GI bleed Emphysema lung Social History Smoking Status: Former smoker Preferred Language: Nigerian Communication Ability: Effective Nursing Home Director Required: No Beliefs That Will Affect Care: None Current Living Situation: Spouse Feels Safe at Home: Yes Safety Concerns: Feels Safe At This Time Assistive Devices: None Review of Systems Review of Systems: All systems reviewed & are unremarkable except as noted in HPI & below Physical Exam Physical Exam: Constitutional: Patient appears to be of their stated age. Patient is in no apparent distress. Patient is well-developed. Eyes: Pupils are equal round and reactive to light. Conjunctivae are normal. Anicteric sclera. Ears nose, mouth and throat: Mallampati class 2. Normal posterior oropharynx. Uvula is midline. Neck: Trachea is midline. Visual inspection is normal. Respiratory: Mild crackles in the lower lobes bilaterally. Mild tachypnea. Cardiovascular: Regular rate and rhythm. 3 out of 6 systolic flow murmur. 1+ edema in extremities bilaterally, right greater than left. Gastrointestinal: Normal bowel sounds, soft, nontender and nondistended. No hepatosplenomegaly noted. Musculoskeletal: No cyanosis. Patient is able to move all extremities. Strength is 5 out of 5 in the upper and lower extremities. Skin: No rashes, warm dry and intact. Neurologic: No obvious focal neurological deficits seen. Psychiatric: Alert and oriented x3 with a euthymic affect. Results & Data Results & Data Vital Signs (Past 12 Hours) Vital Signs Temp Pulse Pulse Pulse Resp BP Pulse Ox 01/07/24 12:12 72 16 98 01/07/24 10:19 76 18 164/91 H 97 01/07/24 08:29 48 L 01/07/24 08:19 63 01/07/24 07:52 01/07/24 07:51 36.5 C 63 18 150/89 H 95 01/07/24 06:00 58 L 16 198/120 H 94 01/07/24 02:50 50 L 01/07/24 01:19 72 18 145/78 H 94 Pulse Ox O2 Del Method O2 Del Method O2 Flow Rate O2 Flow Rate 01/07/24 12:12 Nasal Cannula 2 01/07/24 10:19 Nasal Cannula 2 01/07/24 08:29 01/07/24 08:19 01/07/24 07:52 Nasal Cannula 2 01/07/24 07:51 Nasal Cannula 2 01/07/24 06:00 Nasal Cannula 2 01/07/24 02:50 94 Nasal Cannula 2 01/07/24 01:19 Nasal Cannula 2 PG Care Time/CCT Total # of Minutes Spent Total Time Spent with Patient: Total time spent is greater than 50% in coordination of care (as documented) at patient's floor/unit and/or counseling patient: Coding Level of Care Code 00953 INT INP/OBS CARE 375MIN Diagnoses Pulmonary edema cardiac cause I50.1 Bilateral pleural effusion J90 Cardiac murmur R01.1 Diastolic CHF, acute on chronic I50.33 Hypertension, unspecified type I10 Hypertension type: unspecified Poor diet E63.9 Secondary pulmonary arterial hypertension I27.21
[2024-01-07] MEDS: FUROSEMIDE 40 MG/4 ML VIAL IV ONE (13:33)
[2024-01-07] MEDS: METOPROLOL SUCC 50MG EXT REL TAB PO STA (16:10)
[2024-01-07 16:13] LABS: ANTI-Xa, UFH(UnfractionatedHep 0.43 IU/ml (0.3-0.7)
--- NOTE | 2024-01-07 16:44 | Hospitalist Progress Note ---
Date of Service January 07, 2024 Assessment & Plan (1) Acute encephalopathy: Plan: Suspect multifactorial but improving CT head with no acute pathology Ammonia level WNL UA non-revealing Brain MRI normal Mainly overnight therefore will get overnight pulse oximetry and morning ABG to assess for hypoxia/hypercapnia- completed Iatrogenic most likely biggest factor- discontinue lorazepam indefinitely (2) OSORIO (dyspnea on exertion): Plan: Low suspicion a. fib related but possible led to some heart failure (pleural effusion) contributing Likely due to b/l pleural effusions with mild pulmonary edema--> given lasix dose today with good output, may require additional dose in AM No WBC or fever to suggest consolidation in left lower lobe infectious and biofire negative, will add procalcitonin to rule out need for antibiotics CTA negative for PE Consult pulmonology- no pleurocentesis at this time, recommend diuresis (3) CHF (congestive heart failure): Plan: -New diagnosis w/ normal EF on echo -Diurese as needed -Weights as needed -Low sodium education provided -Recommend outpatient cardiology consultation (4) Atrial fibrillation: Plan: Started on heparin for thrombus prophylaxis by admitting team Switch to DOAC tonight and d/c heparin TSH WNL TTE ordered--> normal EF (5) Hypertensive urgency: Plan: Deferred acutely treating pending MRI brain to ensure no acute CVA No end organ damage to suggest hypertensive emergency (6) Emphysema lung: Plan: On no inhalers for this. No wheezing on exam to suggest exacerbation. Recommend PFTs as outpatient if not recently performed. (7) Diabetes: Plan: HbA1C with AM labs--> 5.4 on admission Stop pioglitazone, contraindicated in CHF, a1c so good do not feel strongly about additional glycemic control at this time Novolog for correction factor only (8) Anxiety: Plan: Continue Cymbalta Stop Lorazepam (9) Thrombocytopenia: Plan: Mild, unclear baseline, LFTs and INR unremarkable, repeat with AM labs Hold aspirin - no clear indication for this from history given by patient and family (10) Hallucinations, visual: Plan: Previously appears to be related to Paxil, currently most likely culprit is lorazepam Prazosin also a possibility of contributing towards this (11) Anemia: Plan: Recently gave blood, to prior Hgb levels to compare Ferritin, iron levels, B12, folate, retic, LDH with Am labs (12) History of GI bleed: Plan: 2018 Switch omeprazole to pantoprazole per hospital formulary (13) Hypertension: (14) Pleural effusion, left: Plan VTE Prophylaxis - IV heparin--> DOAC Diet - T2DM, Low Na Disposition - Contiue admission for observation and diuresis CODE STATUS: Full code Admission and Anticipated Discharge Date Admission Date: January 06, 2024 Supervising Physician Co-Signing Physician Notes Attending attestation Pt seen and examined in concert with Dr. Lynn. In agreement with the documented findings as noted in the resident documentation with any exceptions or additions as noted here. Significantly improved cognition from presentation per patient and spouse without current complaint of lightheadedness, chest pain, SOB. On examination, S1/S2 nl RRR no MCG. CTAB. Abd NT/ND BS+ve Acute encephalopathy - multifactorial potential causes - improving with conservative measures Polypharmacy - discontinued lorazepam and avoid beer's class medications where possible Type 2 diabetes with controlled A1c - d/c actos with concern for exacerbation of heart failure vs. hypoglyecmia inciting encephalopathy. Subacute dyspnea on exertion - s/p furosemide, monitor response and O2 reuqirement per protocol Else see resident documentation as noted. Subjective Patient seen at bedside this morning. No acute events reported overnight. Patient seems to be improving in mentation compared to yesterday and seems more awake and alert. Denies any chest pain, headache, or nausea/vomiting. Patient's breathing does feel somewhat improved but is requiring nasal cannula. No other complaints at this time. Review of Systems Review of Systems: All systems reviewed & are unremarkable except as noted in HPI & below Physical Exam Constitutional: well developed, well nourished and + well hydrated Eyes: + anicteric sclerae Neck: trachea midline, no thyromegaly Respiratory: normal respiratory effort Auscultation: + crackles Cardiovascular: Rate/Rhythm: regular rate and + irregularly irregular Heart Sounds: + murmur Extremities: + edema (Trace LE edema b/l) Gastrointestinal (Abdomen): normal bowel sounds, soft, nontender, no hepatosplenomegaly Musculoskeletal: Head/Neck/Chest: normocephalic and head atraumatic Skin: no rashes, warm and dry Neurologic: moves all extremities Psychiatric: A+Ox3, euthymic affect Results & Data Results & Data Vital Signs (Past 12 Hours) Vital Signs Temp Pulse Pulse Resp BP Pulse Ox O2 Del Method 01/07/24 16:05 87 22 183/96 H 96 Nasal Cannula 01/07/24 13:52 74 16 155/92 H 95 Nasal Cannula 01/07/24 12:12 72 16 98 Nasal Cannula 01/07/24 10:19 76 18 164/91 H 97 Nasal Cannula 01/07/24 08:29 48 L 01/07/24 08:19 63 01/07/24 07:52 Nasal Cannula 01/07/24 07:51 36.5 C 63 18 150/89 H 95 Nasal Cannula 01/07/24 06:00 58 L 16 198/120 H 94 Nasal Cannula O2 Flow Rate 01/07/24 16:05 1 01/07/24 13:52 1 01/07/24 12:12 2 01/07/24 10:19 2 01/07/24 08:29 01/07/24 08:19 01/07/24 07:52 2 01/07/24 07:51 2 01/07/24 06:00 2 (3) CHF (congestive heart failure) Heart failure chronicity: unspecified Heart failure type: unspecified Qualified Code(s): I50.9 - Heart failure, unspecified (4) Atrial fibrillation Atrial fibrillation type: unspecified Qualified Code(s): I48.91 - Unspecified atrial fibrillation (13) Hypertension Hypertension type: unspecified Qualified Code(s): I10 - Essential (primary) hypertension
--- NOTE | 2024-01-07 17:40 | XCELERA ---
[id number] \\[id number]
[2024-01-08 07:12] LABS: Hematocrit (blood only) 31.1 % (42.0-52.0); Hemoglobin 9.9 g/dl (14.0-18.0); Mean Corpuscular Hemoglobin 29.5 pg (25.0-34.0); Mean Corpuscular Hgb Conc 31.8 g/dL (32.0-36.0); Mean Corpuscular Volume 92.6 fL (80.0-100.0); Platelet Count 88 K/uL (130-400); RDW Coefficient of Variation 15.6 % (11.5-14.5); RDW Standard Deviation 52.1 fL (36.4-46.3); Red Blood Count 3.36 M/uL (4.70-6.10)
[2024-01-08] MEDS: APIXABAN 5 MG TABLET PO SCH (08:41)
--- NOTE | 2024-01-08 09:11 | Hospitalist Progress Note ---
Date of Service January 08, 2024 Assessment & Plan Admission and Anticipated Discharge Date Admission Date: January 06, 2024 Results & Data Results & Data Vital Signs (Past 12 Hours) Vital Signs Temp Pulse Pulse Pulse Pulse Pulse Pulse 01/08/24 08:58 92 H 87 83 89 01/08/24 07:28 36.4 C L 62 01/08/24 04:22 36.4 C L 62 01/07/24 23:53 36.9 C 77 01/07/24 22:07 93 H Resp Resp Resp Resp Resp BP BP 01/08/24 08:58 18 18 16 16 01/08/24 07:28 16 168/89 H 01/08/24 04:22 20 150/81 H 01/07/24 23:53 20 146/79 H 01/07/24 22:07 Pulse Ox Pulse Ox Pulse Ox Pulse Ox Pulse Ox O2 Del Method O2 Flow Rate 01/08/24 08:58 92 86 L 90 91 01/08/24 07:28 97 Nasal Cannula 2.5 01/08/24 04:22 97 Nasal Cannula 2 01/07/24 23:53 96 Nasal Cannula 2 01/07/24 22:07 O2 Flow Rate 01/08/24 08:58 1 01/08/24 07:28 01/08/24 04:22 01/07/24 23:53 01/07/24 22:07
[2024-01-08] MEDS: LOSARTAN POTASSIUM 50 MG TAB PO SCH (09:57)
[2024-01-08] MEDS: FUROSEMIDE 40 MG/4 ML VIAL IV ONE (09:57)
--- NOTE | 2024-01-08 12:13 | Discharge Summary ---
Date of Service January 08, 2024 Admission HPI Per Admitting Provider Mario Simon is a 73 year old male who presents to the ER with shortness of breath, hypnopompic hallucinations and expressive dysphasia. Here with his and daughter who provide most of the history. In general he does not like getting investigations and therefore despite most of his symptoms ongoing for last 6 weeks and seeing his PCP he has not had any labs or imaging. The shortness of breath has been getting progressively worse over the last 6 weeks but especially worse over the last few days and is their main concern prompting this visit to the ER. It is mainly on exertion and lying flat but now also occu rring at rest. He denies any chest pain, palpitations, paroxysmal nocturnal dyspnea, leg swelling, claudication, presyncope or syncope. He took an old albuterol inhaler yesterday for his shortness of breath with limited effect. Expressive dysphasia - daughter notes episode of this last Wednesday with difficulty getting the right words out and has reoccurred today. Atrial fibrillation - noted on monitor and EKG today. They report possibly being told he had this during a GI bleed a few years ago in [place] but it was not treated and they haven't had any information regarding this since. He is not on anticoagulation Visual hallucinations - previously these were during the day time but suspected to be due to Paxil therefore switched to Cymbalta and he no longer has this during the day time. Currently hallucinations occur just while waking up in the middle of the night he feels he is hanging from the ceiling in the corridor and is going to fall. Confusion - mainly first this in the morning. Much more asleep during the day time. He has had multiple recent medication changes with Paxil -> Cymbalta in November due to daytime visual hallucinations which have improved on the Cymbalta. He was also started on prazosin for night terrors and therefore discontinued amlodipine due to concerns it would reduce his blood pressure. Lorazepam started PRN in October which he reports taking relatively frequently at a half dose for the last week. He has not been on HCTZ for the last year despite continuing to pick this up from the pharmacy they maintain he is not on this or the amlodipine. Pioglita zone started in June for his diabetes. Of note he also recently gave blood 2 weeks ago despite his ongoing shortness of breath. Admission Exam Per Admitting Provider Constitutional: WD/WN, vitals as above Eyes: PERRL, conjunctivae normal, anicteric sclerae Respiratory: normal respiratory effort, lungs clear to auscultation Cardiovascular: Rate/Rhythm: regular rate and + irregularly irregular Heart Sounds: no murmur Extremities: normal capillary refill and + pedal edema; no calf tenderness Gastrointestinal (Abdomen): normal bowel sounds, soft, nontender, no hepatosplenomegaly Musculoskeletal: no cyanosis or clubbing, extremities motor strength 5/5 Skin: no rashes, warm and dry Neurologic: moves all extremities and awake; not confused Speech / Cognition: normal speech Motor/Sensory: no tremor and no pronator drift Cranial Nerves: PERRL, normal accommodation, EOM intact bilaterally, normal facial strength, tongue midline, able to rotate head bilaterally, able to elevate shoulders bilaterally, no nystagmus and symmetric palate elevation Coordination: normal [id number] test Psychiatric: A+Ox3, euthymic affect Principal Diagnosis Acute HFpEF exacerbation Discharge Exam Constitutional: well developed, well nourished and + well hydrated Eyes: + anicteric sclerae Neck: trachea midline Respiratory: normal respiratory effort Auscultation: + faint bibasilar crackles Cardiovascular: Rate/Rhythm: + irregularly irregular Heart Sounds: + murmur Extremities: + edema (trace LE edema b/l) Gastrointestinal (Abdomen): soft, nontender, no hepatosplenomegaly Musculoskeletal: Head/Neck/Chest: normocephalic and head atraumatic Skin: no rashes, warm and dry Neurologic: moves all extremities Psychiatric: A+Ox3 Discharge Data Allergies Allergy/AdvReac Type Severity Reaction Status Date / Time aspirin Allergy Unknown Unknown - Unverified 01/06/24 18:45 On File w/ [facility] Penicillins Allergy Unknown Unknown - Unverified 01/06/24 18:45 On File w/ [facility] Consultations 01/06/24 18:07 ED Decision to Admit Stat 01/07/24 00:54 Consult Pulmonology Routine Ordered Studies 01/06/24 16:11 CT head/brain wo con Stat 01/06/24 18:59 MRI Brain [MR brain wo con] Stat 01/06/24 19:33 CT for pulmonary embolism PE [CT angio chest PE protocol] Stat Hospital Course (1) Acute encephalopathy: CT head with no acute pathology Ammonia level wnl UA negative Brain MRI unremarkable AMS was likely due to lorazepam use along with metabolic encephalopathy from CHF exacerbation (2) CHF (congestive heart failure): -New diagnosis w/ normal EF on echo- acute HFpEF -RVSP > 60 mmHg, RVEF mildly reduced, LA/RA dilation, -Responded well to diuresis w/ Lasix 40 mg IV x2 -Discharged on Lasix 20 mg daily until PCP f/u and initiation of olmesartan 20 mg daily for HTN control -CHF clinic f/u as outpatient (3) OSORIO (dyspnea on exertion): Secondary to HFpEF + pleural effusions + pulmonary edema CTA negative for PE Pulmonology consulted- deferred thoracentesis, recommended continued diuresis Discharged with home oxygen- 2L with ambulation, 2L at night Remainder as above (4) Atrial fibrillation: Started on heparin for thrombus prophylaxis by admitting team Heparin switched to Eliquis on 01/07, continue 5 mg BID Was noted to have occasional transient bradycardia down to HR 30s during stay, consider EP evaluation for potential pacemaker need in future TSH wnl TTE ordered--> normal EF (5) Hypertensive urgency: Noted during stay No end organ damage to suggest hypertensive emergency (6) Emphysema lung: On no inhalers for this. No wheezing on exam to suggest exacerbation. Recommend PFTs as outpatient if not recently performed. (7) Diabetes: HbA1C with AM labs--> 5.4 on admission Pioglitazone discontinued on discharge due to CHF Recommend SGLT2 inhibitor initiation as outpatient for DM2 + HFpEF (8) Anxiety: Continue cymbalta Held lorazepam during stay, discontinue during discharge (9) Thrombocytopenia: Mild, unclear baseline, LFTs and INR unremarkable, repeat with AM labs Hold aspirin - no clear indication for this from history given by patient and family Aspirin discontinued on discharge (10) Hallucinations, visual: Previously appears to be related to Paxil, currently most likely culprit is lorazepam Prazosin also a possibility of contributing towards this May resume Paxil and prazosin on discharge, avoid lorazepam (11) Anemia: Recent donation of blood prior to admission Hgb stable during stay Ferritin, iron levels, B12, folate, LDH all normal, slightly elevated reticulocyte count noted (12) History of GI bleed: 2017 No UGIB during stay, has remained on PPI (13) Hypertension: (14) Pleural effusion, left: Total Time Total Time Spent Total Time Spent (In Minutes): 40 Discharge Plan Discharge Items Patient Disposition: Home - Self-Care Reason For Visit: ACUTE CONFUSION, SOB, EXPRESSIVE DYSPHASIA Discharge Diagnosis: CHF exacerbation Activity: Resume your previous activity Non-emergency contact: Primary Care Provider and [facility]merer Helper Call non-emergency contact if: your symptoms worsen Follow-up/Referrals: Keke Farias PA-C [Physician Rn Imaging] - Sky Pantoja MD [Primary Care Provider] - (PLEASE CALL YOUR PRIMARY CARE PROVIDER TO SCHEDULE A HOSPITAL DISCHARGE FOLLOW-UP APPOINTMENT WITHIN 7-10 DAYS) Diet: Heart Healthy and Low Sodium (2gm) Addtl Attending Provider Instructions: You were admitted for CHF (congestive heart failure) exacerbation. You were treated with diuretics to help remove extra fluid from your body. Follow-up appointments: Make a follow-up appointment with your PCP within the next week. It is very important that you follow up with them shortly after discharge from the hospital.] We have requested a follow up with our heart failure clinic to be scheduled within the next few weeks. Medications: Your medication list has been reviewed and reconciled upon discharge to ensure accuracy and continuity of care. An updated list of all your medications is included with your hospital discharge paperwork. Please review this list closely, and make note of any changes. We sent a new medication called Lasix to the pharmacy. Please take Lasix 20 mg daily until your follow up with Dr. Pantoja. We also sent another medication to the pharmacy called olmesartan. This is a blood pressure medication. Please take this daily. We also sent a final medication called Eliquis to the pharmacy. This is to reduce stroke risk from atrial fibrillation, an abnormal heart rhythm. Please take Eliquis 5 mg twice daily 12 hours apart. You previously took two medications called lorazepam/Ativan and Actos. The Ativan was likely the source of your confusion and Actos can cause heart failure, so please avoid taking these medications going forward. Please stop taking meloxicam/Mobic too since this can cause bleeding risk while taking Eliquis. Take your medications as instructed; do not skip a dose of your medicines. Make sure all of your doctors know every medicine you are taking (including uegg-[id number] medicines, vitamins, and supplements). Call your primary care provider before taking any new medicines (including [id number]-zoa-[id number] medicines, vitamins, and supplements), because some of these m ay interact with your current medications, or may make your symptoms worse. Tell your primary care provider if you cannot afford your medications. Activity: You can do normal everyday activities as your body allows. Take rest breaks if you feel tired. Do not over-exert yourself. Stop activity if you have pain, shortness of breath or feel dizzy. Weight: It is important for you to monitor your daily weights. Weigh yourself every morning using the same scale. Wear the same amount of clothing each time, without anything in your pockets. Keep a log of your daily weights, and bring this log with you every time you see your primary care physician, or any other doctor. Call your primary care physician if you gain more than 2-3 pounds in 1-2 days. Diet: Follow a low sodium (salt) diet. We recommend limiting your sodium intake to under 2000mg per day. Choose foods and drinks with low or no salt. Remove the salt shaker from your table at home. We also recommend limiting your daily fluid intake to 1800mL (60oz) in order to help your body balance fluids. Do not drink excessive beer, alcohol, or wine. If you are struggling with these restrictions, or need additional help incorporating healthy habits into your daily life, please contact your primary care provider. CONTACT YOUR PRIMARY CARE PROVIDER if you experience any of the following: Shortness of breath or have more difficulty breathing Swelling of your feet, ankles, hands or abdomen Feeling tired with normal activity or experiencing dizziness or fainting Difficulty following your treatment plan, or difficulty taking medications CALL 911 OR GO TO THE EMERGENCY DEPARTMENT if you experience any of the following: Severe abdominal pain Severe nausea/vomiting Severe chest pain, or chest pain that radiates (moves) to your jaw or arm Sudden, severe shortness of breath or difficulty breathing Thank you for allowing us to participate in your care. Pending Studies at Discharge: No Stand-Alone Forms: My [facility] Medications and DC Order Prescriptions: New Eliquis 5 mg Tablet 5 mg PO BID 30 Days Qty: 60 2RF furosemide [Lasix] 20 mg tablet 20 mg PO DAILY Qty: 30 0RF Continued metoprolol succinate 100 mg tablet extended release 24 hr 100 mg PO QAM omeprazole 40 mg capsule,delayed release(/EC) 40 mg PO HS aspirin 81 mg Tablet,Delayed Release (Dr/Ec) 81 mg PO 3XWK pramipexole 0.5 mg tablet 0.5 mg PO HS prazosin 5 mg capsule 5 mg PO HS duloxetine 30 mg capsule,delayed release(DR/EC) 30 mg PO HS ferrous sulfate 325 mg (65 mg iron) Tablet 325 mg PO HS Discontinued pioglitazone [Actos] 15 mg Tablet 15 mg PO DAILY meloxicam 15 mg tablet 15 mg PO QAM lorazepam 1 mg tablet See Rx Instructions .ROUTE .COMPLEX Rx Instructions: 0.5-1mg PO PRN Discharge Orders: Discharge Order- CHF (Routine); Ordered 01/08/24 Ordered By: Clari Nunez Admission Data Admit Date/Time: 01/06/24 19:04 Attending Provider: Mario Baum Admit Provider: Adarsh Shetty Primary Care Provider: Sky Pantoja Other Providers: Adarsh Shetty; Cameron Grayson Other Interventions: Discharge Summary Assessment (RN) Last Done: 01/08/24 12:42 Supervising Physician Co-Signing Physician Notes Attending attestation Pt seen and examined in concert with Dr. Nunez. In agreement with the documented findings as noted in the resident documentation with any exceptions or essence tions as noted here. No recurrence of symptoms reports nor lightheadedness, chest pain, SOB. On examination, S1/S2 nl RRR no MCG. CTAB. Abd NT/ND BS+ve Acute encephalopathy - multifactorial potential causes - resolved without recurrence. Polypharmacy - discontinued lorazepam and avoid beer's class medications where possible. Encourage avoidance of alcohol intake. Type 2 diabetes with controlled A1c - d/c Actos with concern for exacerbation of heart failure vs. hypoglyecmia inciting encephalopathy. Consider GLP-1 if needed. Subacute dyspnea on exertion - s/p furosemide, returned to baseline oxygenation on RA HTN - addition of olmesartan 2/2 elevated BP on admission, continued on discharge. Extensive counseling on low sodium diet Else see resident documentation as noted. Total attending physician time spent with this patient's care on the day of discharge: 35 minutes.
== END 2024-01-08 13:33 | disposition home or self-care (01) | DRG 291 ==
LOC: ED 15:50 → EDINP 19:04 → SUATTDRO 19:04 → 2N 21:53